=== PATIENT | female | born 1970 | race Caucasian/White ===

== ENCOUNTER → 2017-03-13 | Outpatient (CLI) | payer MEDICARE, BC ==
[~2017-03-13] MED LIST: ASPI81TA2 PO; BUDE8.6S NAS; CYAN1TAB46 PO; CYCL-375 PO; ESCI20TA PO; FLUT9.9S NAS; INSU100I3 SQ; INSU100V12 SQ; LEVO200T10 PO; MULT-1114 PO; ONDA4TAB7 PO; PRAV40TA3 PO; PREG150C PO; TETR25TA2 PO; TRAZ-170 PO; [UNRECOGNIZED DRUG - CODE] PO
--- NOTE | 2017-03-13 17:07 | DI ---
LOCATION OF DICTATION: Con EXAM: CHEST, PA LATERAL HISTORY: ITS.REASON: R05 COUGH COMPARISON: August 06, 2015. FINDINGS: The heart size is normal. The mediastinal configuration is unremarkable. There are no consolidating opacities or pleural effusions. There is no evidence for a pneumothorax. The osseous structures are within normal limits. IMPRESSION: No acute cardiopulmonary abnormality is identified. .
== END ==
LOC: IMA 15:41
PROVIDERS: ATTEND Registered Nurse
DX: R05 Cough (principal)

== ENCOUNTER → 2017-03-13 | Outpatient (CLI) | payer MEDICARE, BC | LOC: WC.BC 15:33 | DX: Z12.31 Encounter for screening mammogram for malignant neoplasm of breast (principal); N64.59 Other signs and symptoms in breast | CPT/HCPCS: 77063; G0202 ==